=== PATIENT | male | born 1990 | race Caucasian/White ===

== ENCOUNTER 2024-04-25 20:13 | Emergency (ER) | payer MEDICAID, SELFPAY ==
[2024-04-25 20:15] VITALS: BP 117/75
[2024-04-25 21:00] VITALS: BP 117/67
[2024-04-25] MEDS: DUONEB 3 ML INH (21:02)
[2024-04-25] MEDS: MAGNESIUM SULFATE 50 IV (21:21)
[2024-04-25] MEDS: VENTOLIN NEBULES 15 MG INH (21:21)
[2024-04-25] MEDS: DECADRON 10 MG IV (21:21)
--- NOTE | 2024-04-25 21:25 | ED.GENMED ---
History of Present Illness
<Donal Oconnor PA-C - Last Filed: 04/26/24 00:36>
General
Chief Complaint: Breathing Problem
Source: patient
Exam Limitations: none
Time Seen by Provider: 04/25/24 21:04
History of Present Illness
History of Present Illness:
33-year-old male with history of asthma presents with asthma flare. He states he has multiple inhalers and nebulizers at home. Is been using his nebulizer for a good portion of the day today without relief. He was admitted to [facility] 2
weeks ago for his asthma. He was sent home on prednisone and was doing well on prednisone however couple days after stopping the prednisone his symptoms return. No fever but he does note chills. No rash. No other complaints at this time
Past History
<DEISY Aviles Last Filed: 04/26/24 00:36>
Past History
ED Past Medical History: Asthma
ED Past Surgical History: None
Social History
Tobacco: Non-smoker
Alcohol: None
Personal: Single
Living: with family
Employment: Employed
Family History
Family History: Other (No significant)
Phy Exam
<DEISY Aviles Last Filed: 04/26/24 00:36>
Physical Exam
Physical Exam:
General: Well developed male with increased work of breathing speaking in full sentences
HEENT normocephalic atraumatic neck is supple
Heart: Regular rate and rhythm
Lungs: Diffuse inspiratory and expiratory wheeze.
Extremities: No cyanosis
Course
<DEISY Aviles Last Filed: 04/26/24 00:36>
Orders/Labs/Results
Orders:
Orders
04/25/24 21:00
Ipratropium/Albuterol Sulfate [Duoneb] 3 ml .ROUTE .STK-MED ONE
04/25/24 21:01
Ipratropium/Albuterol Sulfate [Duoneb] 3 ml INH R NOW ONE
04/25/24 21:13
Dexamethasone Sod Phosphate [Decadron] 10 mg IV NOW STA
Magnesium Sulfate 2 Gram/50 ml [Magnesium Sulfate] 2 gram in 50 ml IV NOW
CR Chest - 2 Views Urgent
Comment:
Reason For Exam: sob
04/25/24 21:16
Albuterol Sulfate [Ventolin Nebules] 15 mg INH R NOW STA
04/25/24 21:33
Complete Blood Count/With Diff Urgent
Comprehensive Metabolic Panel Urgent
04/25/24 22:29
ECG [Electrocardiogram (*1)] Urgent
Reason for Study: Chest Pain
EKG- Treatment ONCE
04/25/24 22:31
Ketorolac [Toradol] 15 mg IV NOW STA
04/25/24 23:17
D-Dimer Urgent
Troponin I Urgent
Abnormal Lab Results
04/25/24
21:33
WBC 12.3 H 10^3/uL
(4.8-10.8)
Absolute Neuts (auto) 9.6 H 10^3/uL
(1.4-6.5)
Neutrophils % 78.4 H %
(42.2-75.2)
Lymphocytes % 10.9 L %
(20.5-51.1)
Carbon Dioxide 21 L mmol/L
(22-30)
BUN 8 L mg/dl
(9-20)
Glucose 107 H mg/dl
(70-99)
04/25/24 21:33
04/25/24 21:33
Vital Signs
Initial and Last Documented VS:
Initial Vital Signs
Temp Pulse Resp BP Pulse Ox
97.5 F 111 24 117/75 96
04/25/24 20:15 04/25/24 20:15 04/25/24 20:15 04/25/24 20:15 04/25/24 20:15
Last Documented Vital Signs
Temp Pulse Resp BP Pulse Ox
97.5 F 117 13 117/70 94
04/25/24 20:15 04/25/24 23:15 04/25/24 23:15 04/25/24 23:04 04/25/24 23:15
<Irvin Burgos MD - Last Filed: 04/25/24 23:15>
Orders/Labs/Results
Orders:
Orders
04/25/24 21:00
Ipratropium/Albuterol Sulfate [Duoneb] 3 ml .ROUTE .STK-MED ONE
04/25/24 21:01
Ipratropium/Albuterol Sulfate [Duoneb] 3 ml INH R NOW ONE
04/25/24 21:13
Dexamethasone Sod Phosphate [Decadron] 10 mg IV NOW STA
Magnesium Sulfate 2 Gram/50 ml [Magnesium Sulfate] 2 gram in 50 ml IV NOW
CR Chest - 2 Views Urgent
Comment:
Reason For Exam: sob
04/25/24 21:16
Albuterol Sulfate [Ventolin Nebules] 15 mg INH R NOW STA
04/25/24 21:33
Complete Blood Count/With Diff Urgent
Comprehensive Metabolic Panel Urgent
04/25/24 22:29
ECG [Electrocardiogram (*1)] Urgent
Reason for Study: Chest Pain
EKG- Treatment ONCE
04/25/24 22:31
Ketorolac [Toradol] 15 mg IV NOW STA
04/25/24 23:17
D-Dimer Urgent
Troponin I Urgent
Abnormal Lab Results
04/25/24
21:33
WBC 12.3 H 10^3/uL
(4.8-10.8)
Absolute Neuts (auto) 9.6 H 10^3/uL
(1.4-6.5)
Neutrophils % 78.4 H %
(42.2-75.2)
Lymphocytes % 10.9 L %
(20.5-51.1)
Carbon Dioxide 21 L mmol/L
(22-30)
BUN 8 L mg/dl
(9-20)
Glucose 107 H mg/dl
(70-99)
04/25/24 21:33
04/25/24 21:33
Vital Signs
Initial and Last Documented VS:
Initial Vital Signs
Temp Pulse Resp BP Pulse Ox
97.5 F 111 24 117/75 96
04/25/24 20:15 04/25/24 20:15 04/25/24 20:15 04/25/24 20:15 04/25/24 20:15
Last Documented Vital Signs
Temp Pulse Resp BP Pulse Ox
97.5 F 117 13 117/70 94
04/25/24 20:15 04/25/24 23:15 04/25/24 23:15 04/25/24 23:04 04/25/24 23:15
<Donal Oconnor PA-C - Last Filed: 04/26/24 00:36>
MDM/Problems Addressed
Differential Diagnosis Includes:
Increased work of breathing. Likely asthma flare. He does note chills chest x-ray ordered to evaluate secondary pneumonia. Check labs. DuoNeb and hour-long neb ordered. Magnesium also ordered given the recalcitrant symptoms
<Donal Oconnor PA-C - Last Filed: 04/26/24 00:36>
*Critical Care Note
Total Time (30-74mins, 75-104mins- exclusive of procedures): Not Applicable
<Donal Oconnor PA-C - Last Filed: 04/26/24 00:36>
Update Note
Update Note:
Patient reevaluated multiple times. Chest x-ray clear. D-dimer within normal limits troponin normal. Last visit into room patient states he actually is feeling better he appears more comfortable he is no longer tachypneic lungs are clear upon
reassessment. Had long discussion with patient and significant other regarding treatment including admission versus discharge. Risks and benefits were discussed of both shared decision making occurred and patient feels as though he is feeling
better and wants to go home. Will prescribe prednisone burst for him to take at home. Return precautions were given. He will follow-up with pulmonology
ED Attending Note
<Donal Oconnor PA-C - Last Filed: 04/26/24 00:36>
-
Portions of this chart may have been created with voice recognition software.� Occasional wrong word or��sound alike� substitutions may have occurred due to the inherent limitations of voice recognition software.
<Irvin Burgos MD - Last Filed: 04/25/24 23:15>
ED Attending Note
Patient seen and examined by attending physician: Yes
ED Attending Note:
I have seen and evaluated the patient with a [id number] encounter. I have spoken to the advance practicer provider and involved in the medical history, the physical exam, medical decision making.
Evaluation and management service: agree unless noted differently below.
Results interpretation: agree unless noted differently below.
Focused HPI: 33-year-old male with past medical history of asthma who presents to the emergency department for evaluation of shortness of breath, coughing, wheezing, chest tightness. He says symptoms identical to prior asthma exacerbations. He
does note that he was just admitted to [facility] for severe asthma exacerbation about 3 weeks ago. He was discharged on steroid course he says after he finished a course of steroids symptoms started to return and they have been
progressively increasing, tonight felt like he could not breathe and came to the emergency room. No fever or chills.
Physical exam: Awake alert. Speaking in full sentences but he is tachypneic, sitting upright. Pulse ox normal. He is tachycardic. He has diffuse bilateral wheezing and prolonged expiration, diminished air movement. No accessory muscle use, no
cyanosis.
Medical Decision Makin-year-old male presents in mild to moderate respiratory distress secondary to asthma exacerbation. IV placed will give steroids, nebs, magnesium. Check basic labs and a chest x-ray. Reassess after the above.
Minimal improvement after initial round of steroids and nebulizer, magnesium. Still significant wheezing although moving better air. Will give hour-long albuterol treatment and reassess. If not improving plan for admission for asthma exacerbation.
Patient complaining of increasing sharp chest pain. Chest x-ray reviewed by me no pneumothorax or pneumonia. Likely pleurisy but will check troponin and D-dimer in an abundance of caution. Treat with Toradol.
Discharge Plan
Departure
Patient Disposition: Home (Routine Discharge)
Date of Disposition: 04/26/24
Time of Disposition: 00:34
Patient with high blood pressure during this ER visit?: No
Discharge Problem:
Asthma attack
Instructions: Asthma, Adult (DC)
Prescriptions:
New
prednisone 10 mg Tablet
See Rx Instructions .ROUTE .COMPLEX Qty: 45 0RF
Rx Instructions:
Take By Mouth:
50 mg daily x3 days, 40 mg daily x3 days,
30 mg daily x3 days, 20 mg daily x3 days,
10 mg daily x3 days
No Action
sumatriptan succinate [Imitrex] 100 MG tablet
100 mg PO DAILYPRN PRN (Reason: migraine)
albuterol sulfate 1 PUFF HFA aerosol inhaler
2 puff inhalation R Q4HPRN PRN (Reason: asthma)
mirtazapine 30 mg tablet
30 mg PO HS
cholecalciferol (vitamin D3) 50 mcg (2,000 unit) capsule
50 mcg PO DAILY
epinephrine [EpiPen] 0.3 mg/0.3 mL Auto-Injector
0.3 mg IM PRN PRN (Reason: allergic reaction)
loratadine [Claritin] 10 mg Tablet
10 mg PO DAILY
Visbiome 112.5 billion cell Capsule
1 cap PO DAILY
Wixela Inhub
1 puff inhalation R DAILY
meloxicam
1 tab PO DAILY
topiramate
1 tab PO DAILY
Referrals:
UNKNOWN - PT DOES,NOT KNOW [Family Provider] -
Interventions
Interventions:
*Risk Screen - Suicide Last Done: 04/25/24 21:04
*General Assessment Last Done: 04/25/24 21:04
*Neglect/Abuse Screening Last Done: 04/25/24 21:04
ED- Fall Risk Assessment Last Done: 04/25/24 21:06
*ED COVID-19 Vaccine History Last Done: 04/25/24 21:04
ED- Cardiac Assessment Last Done: 04/25/24 21:06
ED- Pulmonary Assessment Last Done: 04/25/24 21:06
Discharge Date and Time
Print Language: [place]
[2024-04-25 21:42] LABS: % Basophils 0.6 % (0-2); % Eosinophils 4.6 % (0-6); % Immature Granulocytes 0.3 % (0-0.5); % Lymphocytes 10.9 % (20.5-51.1); % Monocytes 5.2 % (1.7-9.3); % Neutrophils 78.4 % (42.2-75.2); Absolute Basophils 0.1 10^3/uL (0-0.2); Absolute Eosinophils 0.6 10^3/uL (0-0.7); Absolute Lymphocytes 1.3 10^3/uL (1.2-3.4); Absolute Monocytes 0.6 10^3/uL (0.1-0.6); Absolute Neutrophils 9.6 10^3/uL (1.4-6.5); Hemoglobin 15.3 g/dL (13.0-18.0); Mean Corp Hgb Conc. 36.4 g/dL (33.0-37.0); Mean Corpuscular Hgb 30.6 pg (27.0-31.0); Mean Platelet Volume 9.8 fL (7.4-10.4); Nucleated Red Blood Cells % 0 % (-); Platelet Count 295 10^3/uL (130-400); Red Cell Dist. Width 12.7 % (11.5-14.5); White Blood Cell Count 12.3 10^3/uL (4.8-10.8)
[2024-04-25 22:00] VITALS: BP 124/63
[2024-04-25 22:12] LABS: ALT (SGPT) 22 U/L (0-50); AST (SGOT) 33 U/L (17-59); Albumin 4.8 g/dl (3.5-5.0); Alkaline Phosphatase 70 U/L (38-126); Blood Urea Nitrogen 8 mg/dl (9-20); Calcium 9.9 mg/dl (8.4-10.2); Carbon Dioxide 21 mmol/L (22-30); Chloride 104 mmol/L (98-107); Glucose 107 mg/dl (70-99); Sodium 142 mmol/L (135-145); Total Bilirubin 0.5 mg/dl (0.2-1.3); Total Protein 7.4 g/dl (6.3-8.2); eGFR > 60.00
[2024-04-25] MEDS: TORADOL 15 MG IV (22:35)
[2024-04-25 23:04] VITALS: BP 117/70
[2024-04-25 23:35] LABS: D-Dimer 0.37 ug/mlFEU (0.00-0.50)
[2024-04-25 23:48] LABS: Troponin I < 0.012 ng/ml
[2024-04-26] VITALS: BP 102/58
== END 2024-04-26 00:46 | disposition home or self-care (01) ==
LOC: EMR 20:13
PROVIDERS: Physician Assistant; EMERGENCY PHYSICIAN Emergency Medicine
DX: J45.901 Unspecified asthma with (acute) exacerbation (principal)
CPT/HCPCS: 99284; 96365; 96375 ×2; 94640; 71046; 80053; 84484; 85025; 85379; 93005